=== PATIENT | male | born 1935 ===

== ENCOUNTER 2018-02-15 11:12 | Outpatient (CLI) | payer OTHER ==
[~2018-02-15] VITALS: Ht 172.7 cm; Wt 68.0 kg
== END 2018-02-15 11:30 | disposition home or self-care (01) ==
LOC: OFIC 805 11:12
DX: K21.9 Gastro-esophageal reflux disease without esophagitis (principal); R13.19 Other dysphagia

== ENCOUNTER 2018-03-30 09:06 | Outpatient (CLI) | payer OTHER ==
[~2018-03-30] VITALS: Ht 152.4 cm; Wt 68.0 kg
== END 2018-03-30 09:20 | disposition home or self-care (01) ==
LOC: OFIC 805 09:06
DX: K21.9 Gastro-esophageal reflux disease without esophagitis (principal); R13.19 Other dysphagia; H61.893 Other specified disorders of external ear, bilateral